=== PATIENT | male | born 1960 | race Caucasian/White ===

== ENCOUNTER 2019-10-10 07:05 | Day surgery (SDC) | payer OTHER ==
[2019-10-09 12:55] VITALS: BMI 33.9
[2019-10-10 09:03] VITALS: TEMP 97.8
[2019-10-10 09:24] VITALS: BP 123/75; PULSE 70
--- NOTE | 2019-10-11 16:27 | PATH ---
Surgical Pathology Report Patient Name: MIGUEL CASPER [facility]. Rec. #: [id number] /Age/Gender: 1960 (Age: 58) / M Account: [id number] Location: [facility]-ENDOSCOPY Taken: 10/10/2019 Received: 10/10/2019 Reported: 10/11/2019 Physicians: Edgardo Meier D.O. Specimen(s) Received A: RIGHT COLON POLYP B: DISTAL TRANVERSE COLON POLYP C: DESCENDING COLON POLYP Clinical History Screening colonoscopy Postoperative diagnosis: Colon polyps Final Diagnosis A. Colon, right, polyp, biopsy: Tubular adenoma. B. Distal transverse colon, polyp, biopsy: Tubular adenoma. C. Descending colon, polyp, polypectomy: Tubular adenoma. Electronically Signed Noemí Mcintosh M.D. Gross Description A. Received in formalin, labeled "right colon polyp biopsy" is a beauchamp, irregular portion of soft tissue measuring 0.3 cm. in greatest dimension. The specimen is submitted in toto in one cassette. B. Received in formalin, labeled "distal transverse colon polyp" is a beauchamp, irregular portion of soft tissue measuring 0.3 cm. in greatest dimension. The specimen is submitted in toto in one cassette. C. Received in formalin, labeled "descending colon polyp" is a beauchamp, irregular portion of soft tissue measuring 0.3 cm. in greatest dimension. The specimen is submitted in toto in one cassette. DL/10/10/2019 saudi/10/10/2019
== END 2019-10-10 09:31 | disposition home or self-care (01) ==
LOC: JASU-ENDO 07:05
PROVIDERS: ATTEND Internal Medicine Gastroenterology
PROC: 0DBK8ZX Excision of Ascending Colon, Via Natural or Artificial Opening Endoscopic, Diagnostic (ICD-10-PCS; 2019-10-10)
PROC: 0DBL8ZX Excision of Transverse Colon, Via Natural or Artificial Opening Endoscopic, Diagnostic (ICD-10-PCS; 2019-10-10)
PROC: 0DBM8ZX Excision of Descending Colon, Via Natural or Artificial Opening Endoscopic, Diagnostic (ICD-10-PCS; principal; 2019-10-10 08:15)
DX: Z12.11 Encounter for screening for malignant neoplasm of colon (principal); D12.2 Benign neoplasm of ascending colon; D12.3 Benign neoplasm of transverse colon; D12.5 Benign neoplasm of sigmoid colon; I10 Essential (primary) hypertension; E78.00 Pure hypercholesterolemia, unspecified; K64.8 Other hemorrhoids
CPT/HCPCS: 88305-TC